=== PATIENT | male | born 1985 | race Hispanic/Latino ===

== ENCOUNTER 2017-01-24 08:43 | Emergency (ER) | payer OTHER ==
[2017-01-24 08:48] VITALS: BP 137/69; PULSE 105; TEMP 98; O2SAT 95; BMI 25.8
[2017-01-24 09:33] VITALS: RESP 16
[2017-01-24] MEDS ORDERED: Oxycodone/Acetaminophen 5/325 mg Tab PO STA (09:56)
--- NOTE | 2017-01-24 10:33 | ED PDOC ---
Lower Extremity Pain/Injury Time Seen by Provider: 01/24/17 09:44 Chief Complaint (Nursing): Lower Extremity Problem/Injury Chief Complaint (Provider): Ankle pain History Per: Patient History/Exam Limitations: no limitations Additional Complaint(s): Pt states that he slipped and fell at 11 PM last night, unable to bear full weight, no head trauma, no LOC. Took Tylenol without relief. Denies paresthesias, weakness. - Ankle/Foot Description Of Injury: Fell Currently Unable To: Bear Weight Alleviating Factor(s): OTC Pain Medication Past Medical History Reviewed: Nursing Documentation, Vital Signs Vital Signs: Last Vital Signs Temp 98 F 01/24/17 09:26 Pulse 105 H 01/24/17 09:26 Resp 16 01/24/17 09:26 BP 137/69 01/24/17 09:26 Pulse Ox 95 01/24/17 09:26 - Medical History PMH: No Chronic Diseases - Surgical History Surgical History: Appendectomy - Family History Family History: States: Unknown Family Hx - Social History Current smoker - smoking cessation education provided: No Alcohol: None - Home Medications Home Medications: Ambulatory Orders Medication Instructions Recorded Acetaminophen with Codeine 1 tab PO Q6H PRN #10 tab 01/24/17 [Tylenol with Codeine No. 3 300 mg-30 mg] Naproxen [Naprosyn] 500 mg PO BID PRN #15 tablet 01/24/17 - Allergies Allergies/Adverse Reactions: Allergies Allergy/AdvReac Type Severity Reaction Status Date / Time No Known Allergies Allergy Verified 01/24/17 09:51 Review of Systems Constitutional: Negative for: Fever Musculoskeletal: Positive for: Leg Pain, Foot Pain Skin: Negative for: Rash, Lesions Neurological: Negative for: Weakness, Numbness, Headache Physical Exam - Reviewed Nursing Documentation Reviewed: Yes Vital Signs Reviewed: Yes - Physical Exam Appears: Positive for: Well, No Acute Distress Head Exam: Positive for: ATRAUMATIC, NORMAL INSPECTION Extremity: Positive for: Tenderness (R lateral ankle), Capillary Refill (<2 sec) , Swelling. Negative for: Normal ROM (Decreased ROM @ R ankle), Pedal Edema, Calf Tenderness, Deformity Neurologic/Psych: Positive for: Alert, Oriented. Negative for: Motor/Sensory Deficits - ECG O2 Sat by Pulse Oximetry: 95 Medical Decision Making Medical Decision Makin yo male with R ankle pain s/p fall. - XR R ankle - XR R foot - Percocet - Podiatry consult [facility] Ankle Rules - Malleolar zone tenderness? Posterior edge or tip of lateral malleolus: Yes Posterior edge or tip of medial malleolus: No Inability to bear weight both immediately and in the ED: Yes - XRAY INDICATED Is an ankle x-ray indicated based on findings?: Yes Disposition - Clinical Impression Clinical Impression: Fracture of distal end of fibula - Disposition Referrals: Abel Powell DPM [Staff Provider] - Disposition: Routine/Home Disposition Time: 13:09 Condition: STABLE Additional Instructions: [id number] [place] [address] THURSDAY @ 2 PM [phone] Prescriptions: Acetaminophen with Codeine [Tylenol with Codeine No. 3 300 mg-30 mg] 1 tab PO Q6H PRN #10 tab PRN Reason: Pain, Severe (8-10) Naproxen [Naprosyn] 500 mg PO BID PRN #15 tablet PRN Reason: Pain, Moderate (4-7) Instructions: Leg Fracture (ED) Forms: [employer] (Malay), [facility] ED School/Work Excuse
[2017-01-24] MEDS ORDERED: Oxycodone/Acetaminophen 5/325 mg Tab ONE (10:48)
--- NOTE | 2017-01-24 13:56 | CP.PCM.CON ---
History of Present Illness - History of Present Illness History of Present Illness: Consult Note for Podiatry- Dr. Powell 31 y.o male with no PMH presents to the ED for right ankle pain. Patient is accompanied by significant other. Patient reports that he tripped and fell last night at 11pm. He reports he woke up this morning with worsening pain which prompt him to go to the ED. He rates his pain 7/10 and describes the pain as a throbbing, stabbing pain to the right ankle. He reports the pain does not radiate. He reports unable to bear any weight to the ankle. Patient denies n/v/ sob/cp/chillse /f or d. PMH: denies PSH: appendectomy ALL: NKDA Meds: Vitamin D FH: father- DM and COPD, mother- asthma SH: socially drinks EtOH, former smoker 1/2-1 ppd 10 year (quit 2 years ago), denies illicit drug use Past Patient History - Past Social History Alcohol: None - PSYCHIATRIC Hx Substance Use: No - SURGICAL HISTORY Hx Appendectomy: Yes - ANESTHESIA Hx Anesthesia: Yes Meds Home Medications: Home Medication List Medication Instructions Recorded Confirmed Type Acetaminophen with Codeine 1 tab PO Q6H PRN #10 tab 01/24/17 Rx [Tylenol with Codeine No. 3 300 mg-30 mg] Naproxen [Naprosyn] 500 mg PO BID PRN #15 tablet 01/24/17 Rx Allergies/Adverse Reactions: Allergies Allergy/AdvReac Type Severity Reaction Status Date / Time No Known Allergies Allergy Verified 01/24/17 09:51 Physical Exam - Constitutional Appears: Well, Non-toxic, No Acute Distress - Extremities Exam Extremities exam: Positive for: normal capillary refill. Negative for: calf tenderness Additional comments: Vasc: DP and PT 2/4 bilaterally, temperature gradient WNL, CRF < 3 seconds x10, mild localized non pitting edema noted to the right ankle Ortho: pain with palpation to the right lateral malleolus, pain with ankle eversion, mild pain with ankle ROM, MM is 5/5 in all four compartments of dorsiflexion, plantarflexion, inversion, and eversion Neuro: gross and protective sensation intact bilaterally Derm: mild ecchymosis noted to the distal to the lateral malleolus, no open lesion, no clinical signs of infection - Neurological Exam Neurological exam: Alert, Oriented x3 - Psychiatric Exam Psychiatric exam: Normal Affect, Normal Mood Results - Vital Signs Recent Vital Signs: Last Vital Signs Temp 98 F 01/24/17 09:26 Pulse 105 H 01/24/17 09:26 Resp 16 01/24/17 09:26 BP 137/69 01/24/17 09:26 Pulse Ox 95 01/24/17 10:37 Assessment & Plan - Assessment and Plan (Free Text) Assessment: 31 y.o male with PMH presents to ED with right non-displaced fibular fracture. Plan: Patient examined and evaluated Discussed the plan in detail with attending Dr. Powell Vitals, labs, chart reviewed X-ray reviewed by me- R nondisplaced fibular fracture at the level of the ankle Modified Jacobo applied with posterior splint Patient to be NWB to the right LE with crutches Educated on RICE protocol Will f/u with Dr. Powell in office on Thursday at 2pm Thank you for the podiatry consult.
--- NOTE | 2017-01-24 17:55 | RAD ---
PROCEDURE: Right Foot Radiographs. HISTORY: Lateral ankle pain COMPARISON: None. FINDINGS: BONES: No acute fracture or destructive bony lesion identified. JOINTS: Normal. SOFT TISSUES: Normal. OTHER FINDINGS: None. IMPRESSION: Unremarkable right foot radiographs.
--- NOTE | 2017-01-24 17:56 | RAD ---
PROCEDURE: Right Ankle Radiographs. HISTORY: Lateral ankle pain COMPARISON: None FINDINGS: BONES: There is a spiral nondisplaced fracture affecting the right ankle lateral malleolus. No additional fracture identified. JOINTS: Normal. No osteoarthritis. Ankle mortise maintained. Talar dome intact SOFT TISSUES: Soft tissue edema overlies the lateral malleolus. OTHER FINDINGS: None. IMPRESSION: Spiral fracture right ankle lateral malleolus. No dislocation
== END 2017-01-24 13:41 | disposition home or self-care (01) ==
LOC: H.ER 08:43
DX: S82.401A Unspecified fracture of shaft of right fibula, initial encounter for closed fracture (principal); W01.0XXA Fall on same level from slipping, tripping and stumbling without subsequent striking against object, initial encounter; Z83.3 Family history of diabetes mellitus; Z87.891 Personal history of nicotine dependence